=== PATIENT | female | born 1980 | race Caucasian/White ===

== ENCOUNTER 2017-04-07 09:10 | Emergency (ER) | payer OTHER ==
[~2017-04-07] VITALS: Ht 154.9 cm; Wt 133.9 kg
[~2017-04-07 09:10] MED LIST: ADVAIR 500/501 DISK; ADVAIR 500/501 DISK IH; AMANTADINE100 M1 PO; AMBIEN5 MG PO; AMPHETAMINE SAL10 MG PO; ATROVENT 00.5 MG/2.5 IH; AZITHROMYCIN250 MG1 PO; BENADRYL50 MG PO; BOTOX100 UNITS IJ; BUPROBAN150 MG PO; BUSPAR7.5 MG PO; BUSPIRONE HCL10 MG PO; CALCIUM 500 MG1 EACH PO; CANDESARTAN CILE8 MG PO; CEFDINIR300 MG PO; CYCLOBENZAPRINE10 MG PO; DELTASONE20 M1 PO; DIFLUCAN150 MG PO; DILAUDID 11 MG/1 ML IV; DILAUDID2 MG PO; DULOXETINE HCL60 MG PO; FIORICET,ESG1 TABLET PO; FLEXERIL10 MG PO; Fish Oil PO; Flexeril PO; HYDROCHLOROTH12.5 M3 PO; HYDROCODONE/AP1 EAC1 PO; IBUPROFEN800 MG PO; IMITREX25 MG PO; LEVAQUIN250 MG PO; LYRICA75 MG PO; MAXALT10 MG PO; MOBIC7.5 MG PO; MORPHINE SULFAT15 M1 PO; MOTRIN600 MG PO; MULTIVITAMIN1 EAC2 PO; Medrol Dosepak PO; NOHOMEMEDS; PERCOCET 5/31 TABLET PO; PROMETHAZINE HC25 M1 PO; PROVENTIL,2.5 MG/0.5 IH; PROVENTIL,2.5 MG/3 M IH; PROZAC20 MG PO; PROZAC40 MG PO; RANITIDINE HCL150 MG PO; REGLAN10 MG PO; REQUIP0.5 MG PO; RISPERDAL0.5 MG PO; RIZATRIPTAN10 M1 PO; Risperdal PO; SYMBICORT60 INHALAT IH; TESSALON PERLE100 MG PO; THERAGRAN1 TABLET PO; TIZANIDINE HCL4 MG PO; TOPAMAX100 MG PO; TOPIRAMATE100 MG PO; TROKENDI XR200 MG PO; ULTRAM50 MG PO; VENTOLIN HFA18 GM IH; VENTOLIN17 GM IH; VICODIN 5-3001 EACH PO; VITAMIN C1000 MG PO; VITAMIN D-32000 UNIT PO; VITAMIN D34000 UNIT PO; VITAMIN D5000 INTUN PO; ZANTAC150 MG PO; ZEBUTAL CAPSUL1 EACH PO; ZITHROMAX250 MG PO; ZOFRAN4 MG PO; ZYRTEC10 M2 PO
[2017-04-07 10:07] LABS: EOSINOPHIL (%) 14.7 % (0-5); EOSINOPHIL COUNT 0.8 K/uL (0-0.3); HEMATOCRIT 35.2 % (36.0-46.0); IMMATURE GRANULOCYTE (%) 0.6 % (0.0-0.7); INSTRUMENT ABS NEUTROPHIL CT 2.2 K/uL; LYMPHOCYTE COUNT 1.7 K/uL (1.0-2.8); MCH 30.5 PG (29.0-34.0); MCHC 34.7 G/DL (30.0-36.0); MEAN PLAT.VOLUME 9.9 uM^3 (9.5-12.4); MONOCYTE (%) 7.6 % (3-12); MONOCYTE COUNT 0.4 K/uL (0-0.8); NEUTROPHIL (%) 43.4 % (45-76); NEUTROPHIL COUNT 2.2 K/uL (1.8-6.4); PLATELET COUNT 201 K/uL (156-360); RBC DIS.WIDTH-CV 12.1 % (11.8-14.6); RBC DIS.WIDTH-SD 38.8 % (39-53); WHITE BLOOD COUNT 5.1 K/uL (4.1-10.2)
[2017-04-07 10:20] LABS: CHLORIDE 110 mEq/L (99-109); POTASSIUM 4.1 mEq/L (3.7-5.4); SODIUM 141 mEq/L (136-147)
[2017-04-07 10:22] LABS: GLUCOSE 106 mg/dL (70-99)
[2017-04-07 10:23] LABS: ANION GAP 6 MEQ/L (2-14)
[2017-04-07 10:26] LABS: GFR ESTIMATE (CALCULATED) > 59 mL/min/
[2017-04-07 10:27] LABS: UREA NITROGEN (BUN) 14 mg/dL (9-23)
[2017-04-07 10:32] LABS: TROP-I INTERPRETATION NEGATIVE; TROPONIN-I < 0.01 ng/mL (0.0-0.30)
[2017-04-07 12:54] VITALS: BP 102/75
== END 2017-04-07 12:56 | disposition home or self-care (01) ==
LOC: EME 09:10
PROVIDERS: Emergency Medicine
DX: M79.661 Pain in right lower leg (principal); M79.662 Pain in left lower leg; R07.89 Other chest pain
CPT/HCPCS: 71010; 71275; 80048; 83880; 84484; 85025; 85379; 93005; 93970; 99281; 99284; J2270

== ENCOUNTER 2017-11-01 18:54 | Emergency (ER) | payer OTHER ==
[~2017-11-01] VITALS: Ht 152.4 cm; Wt 86.8 kg
[2017-11-01 19:48] LABS: HEMATOCRIT 37.3 % (36.0-46.0); MCH 30.7 PG (29.0-34.0); MCHC 34.9 G/DL (30.0-36.0); PLATELET COUNT 233 K/uL (156-360); RBC DIS.WIDTH-SD 38.6 % (39-53); RED BLOOD COUNT 4.24 M/uL (3.80-5.20)
[2017-11-01 19:59] LABS: ALBUMIN 3.7 g/dL (3.2-4.8); CHLORIDE 111 mEq/L (99-109); POTASSIUM 3.6 mEq/L (3.7-5.4); SODIUM 140 mEq/L (136-147)
[2017-11-01 20:01] LABS: GLUCOSE 95 mg/dL (70-99); TOTAL PROTEIN 6.3 g/dL (6.4-8.3)
[2017-11-01 20:03] LABS: TOTAL BILIRUBIN 0.5 mg/dL (0.0-1.0)
[2017-11-01 20:05] LABS: ALKALINE PHOSPHATASE 78 IU/L (3-129); CREATININE 0.8 mg/dL (0.6-1.3); GFR ESTIMATE (CALCULATED) > 59 mL/min/
[2017-11-01 20:06] LABS: UREA NITROGEN (BUN) 9 mg/dL (9-23)
[2017-11-01 20:07] LABS: AST (GOT) 42 IU/L (2-34)
[2017-11-01 20:08] LABS: ALT (GPT) 58 IU/L (3-49)
[2017-11-01 20:14] LABS: QUANTITATIVE HCG < 4.0 MIU/ML
[2017-11-01] MEDS ORDERED: PERCOCET 5/31 TABLET PO (21:12)
[2017-11-01] MEDS ORDERED: ZOFRAN ODT4 MG PO (21:12)
[2017-11-01] MEDS ORDERED: FLOMAX0.4 MG PO (21:12)
[2017-11-01 21:13] LABS: APPEARANCE CLOUDY ((CLEAR)); BILIRUBIN NEGATIVE; BLOOD SMALL; COLOR YELLOW ((YELLOW)); GLUCOSE (STRIP) NEGATIVE; KETONES NEGATIVE; LEUKOCYTES LARGE; NITRITE POSITIVE; PROTEIN (STRIP) 30; SPECIFIC GRAVITY 1.014 (1.000-1.030); UROBILINOGEN 0.2 MG/DL (0.2-1.0)
[2017-11-01 21:39] LABS: BACTERIA 3+ /HPF; EPITHELIAL CELLS RARE /HPF; MUCUS 1+ /LPF; RED BLOOD CELLS 0-5 /HPF (0-5); WHITE BLOOD CELLS 20-30 /HPF (0-5)
[2017-11-01 22:00] VITALS: BP 124/78
== END 2017-11-01 22:18 | disposition home or self-care (01) ==
LOC: EME 18:54
PROVIDERS: Nurse Practitioner Family
DX: N20.0 Calculus of kidney (principal); M79.7 Fibromyalgia; G89.29 Other chronic pain; F41.9 Anxiety disorder, unspecified; F32.9 Major depressive disorder, single episode, unspecified; Z87.442 Personal history of urinary calculi; Z90.49 Acquired absence of other specified parts of digestive tract; Z87.820 Personal history of traumatic brain injury; Z91.040 Latex allergy status; Z88.2 Allergy status to sulfonamides; Z88.6 Allergy status to analgesic agent
CPT/HCPCS: 74176; 80053; 81003; 84702; 85027; 99281; 99285; J1885; J2405; J3010; J7030

== ENCOUNTER 2018-02-26 20:10 | Emergency (ER) | payer OTHER ==
[~2018-02-26] VITALS: Ht 152.4 cm; Wt 125.2 kg
[~2018-02-26 20:10] MED LIST changes: +FLOMAX0.4 MG PO; +ZOFRAN ODT4 MG PO
[2018-02-26 21:35] LABS: APPEARANCE CLOUDY ((CLEAR)); BILIRUBIN NEGATIVE; BLOOD NEGATIVE; GLUCOSE (STRIP) NEGATIVE; KETONES NEGATIVE; LEUKOCYTES MODERATE; NITRITE NEGATIVE; PROTEIN (STRIP) NEGATIVE; SPECIFIC GRAVITY 1.017 (1.000-1.030); UROBILINOGEN 0.2 MG/DL (0.2-1.0)
[2018-02-26 21:36] LABS: ALBUMIN 4.1 g/dL (3.2-4.8); HEMOGLOBIN 14.1 G/DL (11.9-15.5); MCH 30.7 PG (29.0-34.0); MCHC 35.3 G/DL (30.0-36.0); MCV 87.1 FL (83-99); PLATELET COUNT 248 K/uL (156-360); RBC DIS.WIDTH-CV 12.3 % (11.8-14.6); RED BLOOD COUNT 4.59 M/uL (3.80-5.20); WHITE BLOOD COUNT 7.2 K/uL (4.1-10.2)
[2018-02-26 21:37] LABS: CHLORIDE 108 mEq/L (99-109); COLOR YELLOW ((YELLOW)); POTASSIUM 3.5 mEq/L (3.7-5.4); SODIUM 139 mEq/L (136-147)
[2018-02-26 21:39] LABS: GLUCOSE 90 mg/dL (70-99); TOTAL PROTEIN 6.9 g/dL (6.4-8.3)
[2018-02-26 21:41] LABS: TOTAL BILIRUBIN 0.3 mg/dL (0.0-1.0)
[2018-02-26 21:42] LABS: ALKALINE PHOSPHATASE 87 IU/L (3-129)
[2018-02-26 21:43] LABS: CREATININE 0.8 mg/dL (0.6-1.3); GFR ESTIMATE (CALCULATED) > 59 mL/min/
[2018-02-26 21:44] LABS: AST (GOT) 34 IU/L (2-34); UREA NITROGEN (BUN) 8 mg/dL (9-23)
[2018-02-26 21:46] LABS: ALT (GPT) 47 IU/L (3-49)
[2018-02-26 22:01] LABS: BACTERIA 1+ /HPF; EPITHELIAL CELLS 1+ /HPF; MUCUS TRACE /LPF; UCUL ADDED? YES; WHITE BLOOD CELLS TNTC /HPF (0-5)
[2018-02-26] MEDS ORDERED: ULTRAM50 MG PO (23:34)
[2018-02-26] MEDS ORDERED: LEVAQUIN750 MG PO (23:34)
[2018-02-27 00:56] VITALS: BP 103/73
== END 2018-02-27 00:59 | disposition home or self-care (01) ==
LOC: EME 20:10
PROVIDERS: Emergency Medicine
DX: N39.0 Urinary tract infection, site not specified (principal); B96.20 Unspecified Escherichia coli [E. coli] as the cause of diseases classified elsewhere; Z87.440 Personal history of urinary (tract) infections; N20.0 Calculus of kidney; G89.29 Other chronic pain; F98.8 Other specified behavioral and emotional disorders with onset usually occurring in childhood and adolescence; F32.9 Major depressive disorder, single episode, unspecified; E73.9 Lactose intolerance, unspecified; Z90.49 Acquired absence of other specified parts of digestive tract; Z87.820 Personal history of traumatic brain injury; Z88.2 Allergy status to sulfonamides; Z88.6 Allergy status to analgesic agent; Z88.8 Allergy status to other drugs, medicaments and biological substances; Z91.09 Other allergy status, other than to drugs and biological substances; Z91.040 Latex allergy status; Z91.012 Allergy to eggs; Z91.018 Allergy to other foods
CPT/HCPCS: 74176; 80053; 81003; 85027; 87077; 87086 GA; 87186; 99281; 99285; J0696; J1885; J2405; J7030